=== PATIENT | female | born 1955 | race Two or more races ===

== ENCOUNTER 2017-06-19 14:25 | Emergency (ER) | payer BC ==
[~2017-06-19] VITALS: Ht 167.6 cm; Wt 63.5 kg
[2017-06-19] MEDS ORDERED: ESCI5TAB PO (14:44)
--- NOTE | 2017-06-19 17:30 | NUR ---
PT WAS EVALUATED BY DR PEREZ. PT WAS D/C TO [facility]. D/C IN STRUCTIONS GIVEN TO THE PT AND TO HER .
[2017-06-19 17:37] VITALS: BP 124/68
== END 2017-06-19 17:39 | disposition home or self-care (01) ==
LOC: ER 14:27
DX: S52.121A Displaced fracture of head of right radius, initial encounter for closed fracture (principal); S80.01XA Contusion of right knee, initial encounter; W01.0XXA Fall on same level from slipping, tripping and stumbling without subsequent striking against object, initial encounter; Y93.89 Activity, other specified; Y92.89 Other specified places as the place of occurrence of the external cause; Y99.8 Other external cause status
CPT/HCPCS: 73080; 73564; 99284; A4663

== ENCOUNTER 2021-06-17 15:02 | Inpatient (IN) | payer BC, MEDICARE ==
[~2021-06-17] VITALS: Ht 167.6 cm; Wt 65.8 kg
[~2021-06-17 15:02] MED LIST: ESCI5TAB PO
--- NOTE | 2021-06-17 15:27 | NUR ---
PT IS IN ROOM #2B. DR KELLY EVALUATED THE PT.
[2021-06-17 16:08] LABS: MEAN CORPUSCULAR HEMOGLOBIN 30.9 uug (24.7-32.8); MEAN CORPUSCULAR VOLUME 90.2 fL (75.5-95.3); PLATELET COUNT (AUTO) 246 K/uL (179-408)
[2021-06-17 16:10] LABS: CREATININE 0.9 mg/dL (0.6-1.3); POTASSIUM 3.9 mmol/L (3.5-5.1)
[2021-06-17 16:22] LABS: BILIRUBIN,DIRECT 0.1 mg/dL (0.0-0.2); BILIRUBIN,TOTAL 0.2 mg/dL (0.2-1.0); TOTAL PROTEIN, SERUM 6.9 g/dL (6.4-8.2)
[2021-06-17] MEDS ORDERED: ASPIRIN 81 MG TAB.CHEW PO ONE (17:00)
[2021-06-17] MEDS ORDERED: ASPIRIN 81 MG TAB.CHEW ONE (17:26)
[2021-06-17] MEDS ORDERED: Medication Not On Formulary EA (Escitalopram Oxalate (Lexapro) 5 MG) PO SCH (17:30)
[2021-06-17] MEDS: CARVEDILOL 6.25 MG TABLET PO SCH (18:07)
[2021-06-17] MEDS ORDERED: CARVEDILOL 6.25 MG TABLET ONE (18:14)
--- NOTE | 2021-06-17 21:28 | NUR ---
DR. MOJICA WAS PAGED FOR TROPONIN RESULTS.
--- NOTE | 2021-06-17 21:30 | NUR ---
CALLED 3RD FLOOR REPORT, NURSE NOT READY AT THIS TIME.
--- NOTE | 2021-06-17 21:35 | NUR ---
RECEIVED CALL FROM DR. MOJICA, INFORMED OF TROPONIN RESULTS, NO NEW ORDERS.
[2021-06-17] MEDS ORDERED: ALPRAZOLAM 0.25 MG TABLET PO STA (21:46)
--- NOTE | 2021-06-17 21:53 | NUR ---
CALLED TELE FLOOR, WAITING ON RN
[2021-06-17] MEDS ORDERED: ALPRAZOLAM 0.25 MG TABLET ONE (21:57)
--- NOTE | 2021-06-17 22:26 | NUR ---
Pt. admitted to TELE , under care of Dr. MOJICA Belongs List completed.
--- NOTE | 2021-06-17 22:45 | NUR ---
Received patient via gurney. Admitted to TELE. AOx4. On room air. IV on right AC, gauge 20, patent and intact. No acute distress noted at this time, however, patient reports she's still having palpitations and a pain level of 2 out of 10. 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 Established nurse-patient rapport. Oriented patient to room, bed and call light button. Patient attached to tele monitor, showing normal sinus rhythm and HR of 69bpm. Will continue to monitor.
--- NOTE | 2021-06-17 23:10 | NUR ---
Reevaluated patient to check if she still has palpitations. Patient denies pain or palpitation. Will continue to monitor.
[2021-06-17 23:18] VITALS: BP 127/53
[2021-06-18] VITALS: BP 116/51
--- NOTE | 2021-06-18 00:15 | NUR ---
Patient's daughter reported that they were advised that the patient was supposed to get another Troponin test. Previous results were elevated 0.058 and subsequently went up to 0.078. Estiven Paulson NP was notified, and gave a routine troponin test.
[2021-06-18 04:18] VITALS: BP 114/64
--- NOTE | 2021-06-18 06:35 | NUR ---
Patient slept intermittently through the night. No acute distress noted. On tele monitor, showing Normal sinus rhythm and HR of 68bpm. V/S are within normal limits. Safety and comfort measures maintained. Will endorse to incoming nurse.
[2021-06-18 06:57] LABS: HEMATOCRIT 38.4 % (31.2-41.9); MEAN CORPUSCULAR HEMOGLOBIN 30.8 uug (24.7-32.8); MEAN CORPUSCULAR VOLUME 90.6 fL (75.5-95.3); PLATELET COUNT (AUTO) 225 K/uL (179-408)
[2021-06-18 07:08] LABS: CREATININE 0.7 mg/dL (0.6-1.3); PHOSPHOROUS 4.9 mg/dL (2.5-4.9); POTASSIUM 4.5 mmol/L (3.5-5.1)
[2021-06-18] MEDS: CARVEDILOL 6.25 MG TABLET PO SCH (08:00)
[2021-06-18 08:30] VITALS: BP 108/45
[2021-06-18] MEDS ORDERED: ESCITALOPRAM OXALATE 10 MG TABLET PO SCH (09:00)
[2021-06-18] MEDS ORDERED: ASPIRIN EC 81 MG TABLET.DR PO SCH (09:00)
--- NOTE | 2021-06-18 11:01 | NUR ---
Pt is a/o x 4, no complaint of pain today, normal sinus on tele,vitals 108/45, HR 65, 96% on room air and temp of 97.7. Daughter at bedside, pt is currenlt not in any acute distress or discomfort. She is ambulatory, continent x 2. Will continue to monitor.
[2021-06-18 12:13] VITALS: BP 122/63
--- NOTE | 2021-06-18 15:11 | NUR ---
Pt is being discharged home. Daughter at bedside will leave via private car. All belongings at hand, no signs of distress, no complaint of pain or dizziness at this time. Discharge education and materials given to pt. Pt is a/o x 4, ambulatory, last vitals on discharge is 138/52 HR 65. Pt walked downstairs with her daughter. All IV and pt identifying information removed.
== END 2021-06-18 14:45 | disposition home or self-care (01) | DRG 280 ==
LOC: ER 15:21 → TRANSITION 19:16 → TELE3 22:35
PROVIDERS: ADMIT Internal Medicine; ATTEND Internal Medicine
DX: I21.A1 Myocardial infarction type 2 (principal); I50.31 Acute diastolic (congestive) heart failure; I95.9 Hypotension, unspecified; I11.0 Hypertensive heart disease with heart failure; E86.0 Dehydration; F32.A Depression, unspecified; F43.10 Post-traumatic stress disorder, unspecified; Z91.19 Patient's noncompliance with other medical treatment and regimen; Z79.899 Other long term (current) drug therapy
CPT/HCPCS: 36415; 70030-TC; 71045; 83735; 84100; 85025; 93005; 93307; A4663; G0378; J7030

== ENCOUNTER 2022-06-18 10:19 | Emergency (ER) | payer MEDICARE, BC ==
[~2022-06-18] VITALS: Ht 167.6 cm; Wt 66.2 kg
--- NOTE | 2022-06-18 10:29 | NUR ---
DR STUART AT BEDSIDE FOR EVAL - SUTURES REMOVED - TOLERATED WELL BY PATIENT.
[2022-06-18] MEDS ORDERED: BACITRACIN ZINC OINT 15 GM TUBE ONE (10:33)
[2022-06-18] MEDS ORDERED: NEOMY/BACITRA/POLYMYXIN B OINT UD PACKET TP ONE (10:45)
== END 2022-06-18 10:38 | disposition home or self-care (01) ==
LOC: ER 10:19
DX: S61.214D Laceration without foreign body of right ring finger without damage to nail, subsequent encounter (principal); W26.8XXD Contact with other sharp object(s), not elsewhere classified, subsequent encounter; I25.2 Old myocardial infarction; F32.A Depression, unspecified; Z79.899 Other long term (current) drug therapy
CPT/HCPCS: A4663